=== PATIENT | female | born 1955 | race Hispanic/Latino ===

== ENCOUNTER → 2017-07-15 | Day surgery (SDC) | payer OTHER ==
[2017-07-14 15:05] LABS: BASOPHILS # (AUTO) 0.1 (0.0-0.1); BASOPHILS % 0.8 % (0.0-1.0); EOSINOPHILS # (AUTO) 0.4 (0.0-0.4); EOSINOPHILS % 4.7 % (0.0-6.0); HEMOGLOBIN 12.1 g/dL (12.0-16.0); LYMPHOCYTES # (AUTO) 2.5 (1.0-3.2); MEAN CORPUSCULAR HEMOGLOBIN 28.3 pg (28-32); MEAN CORPUSCULAR HGB CONC 32.7 g/dL (31-35); MEAN CORPUSCULAR VOLUME 86.7 fL (81-99); MONOCYTES # (AUTO) 0.5 (0.2-0.8); NEUTROPHILS # (AUTO) 5.2 (2.1-6.9); NEUTROPHILS % 59.2 % (38.7-80.0); PLATELET COUNT 305 x10e3/uL (140-360); RED BLOOD COUNT 4.27 x10e6/uL (3.6-5.1); RED CELL DISTRIBUTION WIDTH 14.2 % (11.7-14.4)
[2017-07-14 15:23] LABS: ANION GAP 10.5 mmol/L (8-16); BLOOD UREA NITROGEN 17 mg/dL (7-26); BUN/CREATININE RATIO 20 (6-25); CALCIUM 9.1 mg/dL (8.4-10.2); CARBON DIOXIDE 27 mmol/L (22-29); CHLORIDE 107 mmol/L (98-107); CREATININE, SERUM 0.85 mg/dL (0.57-1.11); EST GLOMERULAR FILTRATION RATE > 60 ML/MIN (60-); GLUCOSE 186 mg/dL (74-118); POTASSIUM 4.5 mmol/L (3.5-5.1); SODIUM 140 mmol/L (136-145)
--- NOTE | 2017-07-14 15:49 | Diagnostic Imaging Report ---
PROCEDURE: Frontal and lateral views of the chest. COMPARISON: 07/05/14 INDICATIONS: PRE OP ABSCESS DRAINAGE FINDINGS: Lines/tubes: None. Lungs: The lungs are well inflated and clear. There is no evidence of pneumonia or pulmonary edema. Pleura: There is no significant pleural effusion or pneumothorax. Heart and mediastinum: The cardiomediastinal silhouette is borderline in size. Aorta is tortuous. Bones: No acute bony abnormality. IMPRESSION: 1. No acute cardiopulmonary disease. Dictated by: Landen Flynn M.D. on 07/14/2017 at 15:50 Electronically approved by: Landen Flynn M.D. on 07/14/2017 at 15:50
[~2017-07-15] MED LIST: BACITRACIN 50,000 UNIT VIAL ONE; BUPIVACAINE 0.25%/EPI 30ML SDV INJ ONE; CLINDAMYCIN 600MG/D5W 50ML 50 ML IV ONE; DEXAMETHASONE SOD PHOS INJ 4 MG/ML VIAL ONE; FENTANYL CITRATE/PF 100MCG/2 ML INJ ONE; FOLIC ACID1 MG PO; HYDROGEN PEROXIDE 120 ML BTL ONE; LIDOCAINE HCL 2% LOCAL INJ 5 ML SDV VIAL INJ ONE; MIDAZOLAM HCL 2 MG/2 ML VIAL ONE; ONDANSETRON HCL INJ 2 MG/ML VIAL ONE; PROPOFOL IV EMULSION 10 MG/ML 20 ML VIAL ONE; SEVOFLURANE INHAL SOLN 250 ML PEN BTL ONE; VITAMIN D1000 UNI1 PO; Z.0.PROTONIX40 MG PO; Z.1.PHENTERMINE H37. PO
--- OUTSIDE RECORDS SUMMARY | 2017-07-15 07:02 | XMS REPORT ---
Author Author [facility] Address Unknown Phone Unavailable Care Team Providers Care Net Front End Developer Name Role Phone VÍCTOR BOO Unavailable Unavailable Problems This patient has no known problems. Allergies, Adverse Reactions, Alerts This patient has no known allergies or adverse reactions. Medications This patient has no known medications. Results Test Description Test Time Test Comments Text Results Atomic Results Result Comments CHEST [address] [address] Patient Name: BONITA CASTELLANO MR #: [id number] : 1955 Age/Sex: 61/F Req #: [id number] Adm Physician: Ordered by: VÍCTOR BOO MD Report #: [id number] Location: OR Room/Bed: Procedure: [id number] DX/CHEST 2 VIEWS Exam Date: 07/14/17 Exam Time : 1518 REPORT STATUS: Signed PROCEDURE: Frontal and lateral views of the chest. COMPARISON: 07/05/14 INDICATIONS: PRE OP ABSCESS DRAINAGE FINDINGS: Lines/tubes: None. Lungs: The lungs are well inflated and clear. There is no evidence of pneumonia or pulmonary edema. Pleura: There is no significant pleural effusion or pneumothorax. Heart and mediastinum: The cardiomediastinal silhouette is borderline in size. Aorta is tortuous. Bones: No acute bony abnormality. IMPRESSION: 1. No acute cardiopulmonary disease. Dictated by: Landen Flynn M.D. on 07/14/2017 at 15:50 Electronically approved by: Landen Flynn M.D. on 07/14/2017 at 15:50 Dictated By: LANDEN FLYNN MD 49 Transcribed By: PAMELA on 07/14/171549 COPY TO: VÍCTOR BOO MD
--- NOTE | 2017-07-15 10:28 | Operative Report ---
DATE OF PROCEDURE: July 15, 2017 PREOPERATIVE DIAGNOSIS: Right axillary abscess. POSTOPERATIVE DIAGNOSIS: Right axillary abscess secondary to infected epidermal inclusion cyst. PROCEDURES PERFORMED: 1. Incision and drainage of abscess of the right axilla. 2. Debridement of infected, ruptured right axillary cyst, epidermal inclusion cyst. INTRAOPERATIVE FINDINGS: Right axillary infected and ruptured epidermal inclusion cyst. DESCRIPTION OF THE PROCEDURE: With the patient lying on the operative table in the supine position, after administration of general endotracheal anesthesia, she was prepped and draped for incision and drainage of right axillary abscess. With the arm abducted, the axilla exposed, an incision was made directly over the palpable fluctuant area, immediately came into view fragments of occlusion cyst with its typical cheesy contents, all of that was debrided down to viable and clean tissue without any evidence of cyst remnants or lining. The wound was copiously irrigated and then a 1/4-inch Neftali drain was placed to drain the cavity and brought out inferior and lateral through the incision. This drain was secured there with 3-0 silk and we closed the cavity with interrupted 3-0 silk sutures and then we packed the cavity with Betadine gauze. Sterile dressing was applied. The patient tolerated the procedure well, was taken to recovery room in stable condition. Job#: [id number]
== END | disposition home or self-care (01) ==
LOC: OR 07:00
PROVIDERS: ATTEND Surgery
DX: L02.411 Cutaneous abscess of right axilla (principal); L72.0 Epidermal cyst; K21.9 Gastro-esophageal reflux disease without esophagitis; R20.9 Unspecified disturbances of skin sensation; K44.9 Diaphragmatic hernia without obstruction or gangrene; G47.33 Obstructive sleep apnea (adult) (pediatric); R00.1 Bradycardia, unspecified; F17.210 Nicotine dependence, cigarettes, uncomplicated; Z01.810 Encounter for preprocedural cardiovascular examination; Z01.812 Encounter for preprocedural laboratory examination; Z01.818 Encounter for other preprocedural examination; Z68.41 Body mass index [BMI] 40.0-44.9, adult
CPT/HCPCS: 10060; 36415; 71046; 80048; 85025; 87071; 87075; 87205; 88304; 93005; J1100; J2001; J2250; J2405; 88305

== ENCOUNTER 2017-09-02 20:58 | Emergency (ER) | payer OTHER ==
[~2017-09-02] VITALS: Ht 154.9 cm; Wt 98.0 kg
[~2017-09-02 20:58] MED LIST changes: -BACITRACIN 50,000 UNIT VIAL ONE; -BUPIVACAINE 0.25%/EPI 30ML SDV INJ ONE; -CLINDAMYCIN 600MG/D5W 50ML 50 ML IV ONE; -DEXAMETHASONE SOD PHOS INJ 4 MG/ML VIAL ONE; -FENTANYL CITRATE/PF 100MCG/2 ML INJ ONE; -HYDROGEN PEROXIDE 120 ML BTL ONE; -LIDOCAINE HCL 2% LOCAL INJ 5 ML SDV VIAL INJ ONE; -MIDAZOLAM HCL 2 MG/2 ML VIAL ONE; -ONDANSETRON HCL INJ 2 MG/ML VIAL ONE; -PROPOFOL IV EMULSION 10 MG/ML 20 ML VIAL ONE; -SEVOFLURANE INHAL SOLN 250 ML PEN BTL ONE
[2017-09-02 22:00] LABS: BACTERIA,URINE MANY /HPF; BILIRUBIN,URINE NEGATIVE (NEGATIVE); CLARITY,URINE CLOUDY (CLEAR); COLOR,URINE YELLOW (YELLOW); KETONES,URINE NEGATIVE (NEGATIVE); LEUKOCYTE ESTERASE ,URINE 2+ (NEGATIVE); NITRITE,URINE POSITIVE (NEGATIVE); PROTEIN,URINE DIPSTICK 3+ (NEGATIVE); RBC,URINE >50 /HPF (0-5); URINE UROBILINOGEN 0.2 mg/dL (0.2 - 1)
[2017-09-02 22:01] LABS: EPITHELIAL CELLS,URINE FEW /LPF; MUCUS,URINE FEW (RARE)
--- NOTE | 2017-09-02 23:09 | Diagnostic Imaging Report ---
EXAM: CT ABDOMEN/PELVIS WO DATE: 09/02/2017 10:02 PM INDICATION: Renal stone, flank pain COMPARISON: None TECHNIQUE: The abdomen and pelvis were scanned using a multidetector helical scanner. Coronal and sagittal reformations were obtained. Routine protocol performed. IV Contrast: None ml Isovue 300/370 FINDINGS: Lack of IV contrast decreases sensitivity in evaluating abdominal and pelvic organs. LOWER THORAX: Calcified left lower lobe granuloma. LIVER/BILIARY: Hepatic steatosis. GALLBLADDER: Unremarkable SPLEEN: Unremarkable PANCREAS: Unremarkable ADRENALS: 1.2 cm lipid rich left adrenal adenoma (HU -14). KIDNEYS: No hydronephrosis or stones. GI TRACT: No wall thickening or evidence of obstruction. Diverticulosis. Appendix is not visualized. VESSELS: Mild atherosclerotic PERITONEUM/RETROPERITONEUM: No free air or fluid LYMPH NODES: No lymphadenopathy REPRODUCTIVE ORGANS/BLADDER: Bladder is partially decompressed but appears thick-walled with perivesicular stranding. Hysterectomy. SOFT TISSUES: Small fat-containing umbilical hernia. BONES: No suspicious bone lesions. IMPRESSION: Findings which can be seen with cystitis. Correlate with urinalysis. No obstructive uropathy. Signed by: Dr Asmita Maradiaga MD on 09/02/2017 11:05 PM
== END 2017-09-02 23:55 | disposition home or self-care (01) ==
LOC: ER 20:58
DX: R30.0 Dysuria (principal); N30.91 Cystitis, unspecified with hematuria; K21.9 Gastro-esophageal reflux disease without esophagitis
CPT/HCPCS: 74176; 81001; 87086; 87186; 99283

== ENCOUNTER → 2018-07-06 | Outpatient (CLI) | payer OTHER ==
--- NOTE | 2018-07-06 15:05 | Diagnostic Imaging Report ---
EXAMINATION: PA and lateral views of the chest. COMPARISON: None CLINICAL HISTORY: Preoperative exam for thumb surgery DISCUSSION: Lines/tubes: None. Lungs: The lungs are well inflated and clear. There is no evidence of pneumonia or pulmonary edema. Pleura: There is no pleural effusion or pneumothorax. Heart and mediastinum: Tortuous thoracic aorta. Otherwise unremarkable cardiomediastinal contour. Bones and soft tissues: No acute bony abnormalities. Degenerative changes in the thoracic spine IMPRESSION: No acute cardiopulmonary abnormalities. Signed by: Dr. Tobin Brennan M.D. on 07/06/2018 3:02 PM
== END ==
LOC: RAD 13:34
PROVIDERS: ATTEND Internal Medicine
DX: Z01.818 Encounter for other preprocedural examination (principal)
CPT/HCPCS: 71046

== ENCOUNTER 2019-09-16 10:41 | Emergency (ER) | payer OTHER ==
[~2019-09-16] VITALS: Ht 154.9 cm; Wt 98.0 kg
--- OUTSIDE RECORDS SUMMARY | 2019-09-16 10:45 | XMS REPORT | Continuity of Care Document ---
Author Author Chris SkyBulls, BONITA Gaines Organization [employer] Address Unknown Phone Unavailable Care Team Providers Care Case Management Associate Name Role Phone [employer] Unavailable Un available Problems Problem Status Onset Date Classification Date Reported Comments Source Unspecified inflammatory polyarthropathy Active Problem 08/25/2013 Mario Ernst Osteoarthrosis generalized, unspecified site Active Problem 08/25/2013 Mario Ernst Medications Medication Details Route Status Patient Instructions Ordering Provider Order Date Source Mobic 1 tablets Orally Active 7.5 MG Orally twice a d ay as need Toño Jaquez 08/16/2013 Mario Ernst Omeprazole 1 capsule Orally Active 40 MG Orally Once a day Toño Jaquez Mario Ernst Allergies, Adverse Reactions, Alerts Substance Category Reaction Severity Reaction type Status Date Reported Comments Source Iodine Adverse Reaction rash Adverse Reaction Active 08/12/2013 Mario Ernst Immunizations No Data Provided for This Section Results No Data Provided for This Section Pathology Reports No Data Provided for This Section Diagnostic Reports No Data Provided for This Section Consultation Notes No Data Provided for This Section Discharge Summaries No Data Provided for This Section History and Physicals No Data Provided for This Section Vital Signs Vital Sign Value Date Comments Source Weight 206 08/12/2013 Mario Ernst Height 62 0 08/12/2013 Mario Ernst Temperature Oral (F) 98.3 F 08/12/2013 Mario Ersnt Heart Rate 76 08/12/2013 Mario Ernst Diastolic (mm Hg) 82 08/12/2013 Mario Ernst Systolic (mm Hg) 124 08/12/2013 Mario Ernst Encounters Location Location Details Encounter Type Encounter Number Reason For Visit Attending Provider ADM Date DC Date Status Source Maldonado Ernst MD 4w f/u [id number] 08/13/19 14 08/12/2013 Mario Ernst MD [facility] rx [id number] 08/17/19 14 08/16/2013 Mario Ernst MD [facility] rx [id number] 08/17/19 14 08/16/2013 Mario Ernst Procedures No Data Provided for This Section Assessment and Plan No Data Provided for This Section Plan of Care No Data Provided for This Section Social History Social History Date Source Social History ElementQualifiersDate Rep orted Tobacco Use: . Are you a:: current smoker , How oft en do you smoke cigarettes?: every day August 12, 2013 Caffeine: yes. frequency:, 1-3, cups/day August 12, 2013 Exercise: no. August 12, 2013 Alcohol: socially. August 12, 2013 08/12/2013 Mario Ernst Family History No Data Provided for This Section Advance Directives No Data Provided for This Section Functional Status No Data Provided for This Section
--- OUTSIDE RECORDS SUMMARY | 2019-09-16 10:45 | XMS REPORT ---
Author Author BONITA Rocha Organization [employer] Address Unknown Phone Unavailable Care Team Providers Care Block Bolter Mule Operator Name Role Phone Brandi Rocha CP Unavailable Encounters Encounter Location Date mobic rx Maldonado Ernst MD August 16, 2013 Problems Problem Type Condition ICD-9 Code Onset Dates Condition Statu s Problem Unspecified inflammatory polyarthropathy 714.9 Active Problem Osteoarthrosis generalized, unspecified site 715.00 Active Medications Medication Code System Code Instructions Start Date End Date Status Dosage Moblaith MEDISPAN [address]-34 7.5 MG Orally twice a day as need Ma 2013 Active 1 tablets Social History Social History Element Qualifiers Date Reported Tobacco Use: . Are you a:: current smok er , How often do you smoke cigarettes?: every day August 12, 2013 Caffeine: yes. frequency:, 1-3, cups/day August 12, 2013 Exercise: no. August 12, 2013 Alcohol: socially. August 12, 2013 Summary Purpose [employer] Submission
--- OUTSIDE RECORDS SUMMARY | 2019-09-16 10:46 | XMS REPORT | Summary of Care ---
Author Author BONITA POOL M.D. Organization Unknown Address Unknown Phone Unavailable Care Team Providers Care Community Relations Coordinator Name Role Phone ADALBERTO POOL M.D. Unavailable Unavailable SIL GAMBINO M.D. Unavailable Unavailable KODY GONZALES [place], MARVIN Sorensen Unavailable Unavailable SIL GAMBINO MD Unavailable Unavailable Unavailable Unavailable Functional Status Name Dates Details Functional status health issues are not documented Status: Name Dates Details Cognitive status health issues are not d ocumented Status: Problems Name Dates Details Pain of left hand (729.5, M79.642) Status: Active Rupture of ulnar collateral ligament of left thumb, initial encounter (842.12, S63.642A) Status: Active Encounter for screening mammogram for br east cancer (V76.12, Z12.31) Status: Active Urge incontinence of urine (788.31, N39. 41) Status: Active Depression (311, F32.9) Status: Active Medications Name Dates Details Ondansetron HCl - 8 MG Oral Tablet TAKE 1 TABLET Every twelve hours Quantity: 15 SIL GAMBINO M.D. * Start : 16-Jul-2018 Active Colace 100 MG Oral Capsule TAKE 1 CAPSULE 3 TIMES DAILY. * Quantity: 45 Refills: 0 SIL GAMBINO M.D. * Start : 16-Jul-2018 Active metFORMIN HCl - 500 MG Oral Tablet * Refills: 0 Active Omeprazole 40 MG Oral Capsule Delayed Release * Refills: 0 Active Oxybutynin Chloride ER 5 MG Oral Tablet Extended Release 24 Hour TAKE 1 TABLET DAILY * Quantity: 30 Refills: 2 ADALBERTO POOL M.D. * Start : 20-Apr-2019 Active Allergies and Adverse Reactions Name Dates Details Keflex (Allergy) Status: Active Iodine (Allergy) Status: Active Past Medical History Name Dates Details History of Fibroids (V13.89, Z86.018) Status: Resolved History of ovarian cyst (V13.29, Z87.42) Status: Resolved Procedures Procedure Dates Details Nirmala - DIGITAL MAMMOGRAM Date: 20-Apr-2019 Immunization Name Dates Details Immunizations not documented Family History Name Dates Details Family history of Diabetes (250.00, E11. 9) Status: Active Social History Name Dates Details - Status: Name Dates Details Never smoker Vital Signs Date Test Result Details [id number] BP Systolic 144 mm[Hg] Status: Comments: Lo cation: RUE; Position: Sitting BP Diastolic 77 mm[Hg] Status: Comments: Lo cation: RUE; Position: Sitting Height 61.5 in Status: Weight 224.5 lb Status: Body Mass Index Calculated 41.73 kg/m2 Status: Body Surface Area Calculated 2 m2 Status: Temperature 98.4 f Status: Comments: Me thod: Oral Heart Rate 48 /min Status: Comments: Lo cation: R Radial; Quality: Normal Results Date Description Value Details Results not documented Plan of Care Name Dates Details Planned Observations Planned Goals not documented Planned Encounters Appointment; MARVIN GATES M.D. On: 11-May-2019 13:00 Interventions Provided Medication Changes* Oxybutynin Chloride ER 5 MG Oral Tablet Extended Release 24 Hour - Start Labs/Procedures/Imaging* Nirmala - DIGITAL MAMMOGRAM; To Be Done: 20 Apr 2019 Discussion/Summary* WWE * Urge UI * -ditropan 5 XL given to patient * Depression * -denies SI/HI * -declined referral to psych. Going to discuss with her PCP * RTC in 2 months. Instructions Name Dates Details Instructions not documented Encounters Appointment; SIL GAMBINO M.D. Encounter Diagnosis: Problem not documented On: 25-Jun-2018 8:00 Appointment; SIL GAMBINO M.D. Encounter Diagnosis: Problem not documented On: 02-Jul-2018 13:30 Appointment; SIL GAMBINO M.D. Encounter Diagnosis: Problem not documented On: 19-Jul-2018 11:00 Appointment; SIL GAMBINO M.D. Encounter Diagnosis: Problem not documented On: 27-Jul-2018 7:45 Appointment; SIL GAMBINO M.D. Encounter Diagnosis: Problem not documented On: 10-Aug-2018 7:45 Appointment; ADALBERTO POOL M.D. Encounter Diagnosis: Problem not documented On: 20-Apr-2019 13:00
--- OUTSIDE RECORDS SUMMARY | 2019-09-16 10:46 | XMS REPORT | Continuity of Care Document ---
Author Author [facility] t Organization [facility] Address [address] [place] [address] Phone Unavailable Care Team Providers Care Boat Assembler Name Role Phone KATHIA JIMENEZ MD PCP ADALBERTO POOL M.D. Attphys Unavailable SIL GAMBINO M.D. Attphys Unavailable KATHIA JIMENEZ Attphys Unavailable Beny XIE Attphys Unavailable VÍCTOR BOO Attphys Unavailable Payers Payer Name Policy Type Policy Number Effective Date Expiration Date Lina Billingsley o [id number] 2017 00:00:[address] [facility] Problems Condition Name Condition Details Condition Category Status Onset Date Resolution Date Last Treatment Date Treating Clinician Comments Source Pain of left hand Pain of left hand Problem Active [facility] Rupture of ulnar collateral ligament of left thumb, in itial encounter Rupture of ulnar collateral ligament of left thumb, initial encounter Problem Active [facility] History of Fibroids History of Fibroids Problem Resolved [facility] History of ovarian cyst History of ovarian cyst Problem Resolved [facility] Encounter for screening mammogram for breast cancer En counter for screening mammogram for breast cancer Problem Active [facility] Urge incontinence of urine Urge incontinence of urine Problem Active [facility] Depression Depression Problem Active [facility] Unspecified inflammatory polyarthropathy Unspecified inflammatory polyarthropathy Active Problem 08/25/2013 Mario Ernst Problem Active 2013-08-25 02:49:21 Rony Lockhart Osteoarthrosis generalized, unspecified site Osteoarthrosis generalized, unspecified site Active Problem 08/25/2013 Mario Ernst Problem Active 2013-08-25 02:49:21 Chris Lockhart Allergies, Adverse Reactions, Alerts Allergy Name Allergy Type Status Severity Reaction(s) Onset Date Inacti ve Date Treating Clinician Comments Source Cephalexin Monohydrate Allergy to Substance Active 2017 00:00:00 [facility] Iodine Allergy to Substance Active Mild RASH 2017-09-02 00:00:00 [facility] Iodine Iodine Active rash 2013-08-12 00:00:00 [facility] Keflex drug allergy Active [facility] Iodine allergy to substance Active [facility] Family History Family Member Diagnosis Comments Start Date Stop Date Source Sister Family history of Diabetes [facility] Social History Social Habit Start Date Stop Date Quantity Comments Source TobaccoUse: 2013-08-12 00:00:00 2013-08-12 00:00:00 [facility] Smoking Status Start Date Stop Date Source Never smoker [facility] Medications Ordered Medication Name Filled Medication Name Start Date Stop Da te Current Medication? Ordering Clinician Indication Dosage Frequency Signature (SIG) Comments Components Source Oxybutynin Chloride ER 5 MG Oral Tablet Extended Relea se 24 Hour Oxybutynin Chloride ER 5 MG Oral Tablet Extended Release 24 Hour 2019-04-20 00:00:00 Yes ADALBERTO POOL M.D. QD TAKE 1 TABLET DAILY [facility] Ondansetron HCl - 8 MG Oral Tablet Ondansetron HCl - 8 MG Or al Tablet 2018-07-16 00:00:00 Yes SIL GAMBINO M.D. 1 Q12H TAKE 1 TABL ET Every twelve hours [facility] Colace 100 MG Oral Capsule Colace 100 MG Oral Capsule 2018-07-16 00:0 0:00 Yes SIL GAMBINO M.D. Q0.3333D TAKE 1 CAPSULE 3 TIMES DAILY. [facility] Omeprazole 2013-08-25 02:49:21 Yes Brandi Rocha 1 capsule [facility] Mobic 2013-08-16 00:00:00 Yes Brandi Rocha 1 tablets [facility] metFORMIN HCl - 500 MG Oral Tablet metFORMIN HCl - 500 MG Oral Tablet Yes [facility] Omeprazole 40 MG Oral Capsule Delayed Release Omeprazo le 40 MG Oral Capsule Delayed Release Yes [facility] Folic Acid 1 Mg Tablet Folic Acid 1 Mg Tablet Yes 1 Daily [facility] Pantoprazole Sodium (Protonix) 40 Mg Tablet. Pantopr azole Sodium (Protonix) 40 Mg Tablet. Yes 40 As Needed [facility] Cholecalciferol (Vitamin D3) (Vitamin D) 1,000 Unit Ta blet, 1000 Unit Oral Cholecalciferol (Vitamin D3) (Vitamin D) 1,000 Unit Tablet, 1000 Unit Oral 2017-07-14 00:00:00 No [address] [facility] Phentermine Hcl 37.5 Mg Capsule, 0.5 Tab Oral Phenterm ine Hcl 37.5 Mg Capsule, 0.5 Tab Oral 2015-01-10 00:00:00 No .[address] [facility] Vital Signs Vital Name Observation Time Observation Value Comments Source BP Systolic 2019-04-20 13:29:00 144 mm[Hg] Location: RUE; Positi on: Sitting [facility] BP Diastolic 2019-04-20 13:29:00 77 mm[Hg] Location: RUE; Positi on: Sitting [facility] Height 2019-04-20 13:29:00 61.5 [in_us] [facility] Weight 2019-04-20 13:29:00 224.5 [lb_av] [facility] Body Mass Index Calculated 2019-04-20 13:29:00 41.73 kg/m2 [facility] Temperature 2019-04-20 13:29:00 98.4 [degF] Method: Oral [facility] Heart Rate 2019-04-20 13:29:00 48 /min Location: R Radial; Q uality: Normal [facility] Weight 2013-08-12 20:00:00 [facility] Height 2013-08-12 20:00:00 [facility] Temperature Oral (F) 2013-08-12 20:00:00 98.3 F [facility] Heart Rate 2013-08-12 20:00:00 [facility] [place] Diastolic (mm Hg) 2013-08-12 20:00:00 [facility] Systolic (mm Hg) 2013-08-12 20:00:00 [facility] [place] Procedures Procedure Date / Time Performed Performing Clinician Kalpana Silvestre - DIGITAL MAMMOGRAM 2019-04-20 00:00:00 [facility] Post Op Promis 29 Survey 2018-07-28 00:00:00 [facility] [U] XRAY FINGER(S) - 2 VWS MIN. LEFT [id number] 2018-07-27 00:00:00 [facility] MR Hand wo contrast [id number] 2018-06-25 00:00:00 [facility] CT of abdomen and pelvis without contrast 2017-09-02 00:00:00 CARLOS PACHECO [facility] DRAINAGE OF SKIN ABSCESS 2017-07-15 00:00:00 ANDRESSA BOO [facility] X-ray of chest, two views 2017-07-14 00:00:00 CAIT BOO [facility] EGD BIOPSY SINGLE/MULTIPLE 2016-12-13 00:00:00 MARYBETH ROOT [facility] DILATE ESOPHAGUS 1/MULT PASS 2016-12-13 00:00:00 MARYBETH ROOT [facility] Encounters Start Date/Time End Date/Time Encounter Type Admission Type [facility] Care Department Encounter ID Source 2019-04-20 13:00:00 2019-04-20 13:00:00 Appointment; ADALBERTO POOL M.D. CROSS, TAMIKA, M.D. [facility] [id number] [facility] 2018-08-10 07:45:00 2018-08-10 07:45:00 Appointment; BLAIR GAMBINO M.D. MANSOUR, ASHTON, M.D. [facility] [id number] [facility] 2018-07-27 07:45:00 2018-07-27 07:45:00 Appointment; BLAIR GAMBINO M.D. MANSOUR, ASHTON, M.D. [facility] Orthopedics at [facility] [id number] [facility] 2018-07-19 11:00:00 2018-07-19 11:00:00 Appointment; BLAIR GAMBINO M.D. MANSOUR, ASHTON, M.D. [facility] Orthopedics at [facility] [id number] [facility] 2018-07-02 13:30:00 2018-07-02 13:30:00 Appointment; BLAIR GAMBINO M.D. MANSOUR, ASHTON, M.D. [facility] Orthopedics [id number] [facility] 2018-06-25 08:00:00 2018-06-25 08:00:00 Appointment; BLAIR GAMBINO M.D. MANSOUR, ASHTON, M.D. [facility] UTP [id number] [facility] 2017-09-02 20:58:00 2017-09-02 23:55:00 Departed Emergency Room 1 RODO XIE [facility] [id number] [facility] 2017-07-15 07:00:00 2017-07-15 07:00:00 Registered Surgical Day Car e VÍCTOR TAYLOR [facility] [id number] [facility] 2016-12-13 06:58:00 2016-12-13 06:58:00 Registered Surgical Day Care [facility] [id number] [facility] 2013-08-16 11:01:00 2013-08-16 11:01:00 Outpatient MD Maldonado Castro MD [id number] Mario Ernst MD 2013-08-12 15:00:00 2013-08-12 15:00:00 Outpatient MD Maldonado Castro MD [id number] Mario Ernst MD Results Test Description Test Time Test Comments Results Result Comments Source [U] XRAY FINGER(S) - 2 VWS MIN. LEFT [id number] 2018-07-27 08:02:00 Images acquired, not reported on this accession number. [facility] CHEST 2 VIEWS 2018-07-06 15:00:00 [place] [address] Patient Name: BONITA CASTELLANO MR #: [id number] : 1955 Age/Sex: 62/F Req #: [id number] Adm Physician: Ordered by: KATHIA JIMENEZ MD Report #: [id number] Location: [facility] Room/Bed: Procedure: [id number] DX/CHEST 2 VIEWS Exam Date: 07/06/18 Exam Time: 1403 REPORT STATUS: Signed EXAMINATION: PA and lateral views of the chest. COMPARISON: None CLINICAL HISTORY: Preoperative exam for thumb surgery DISCUSSION: Lines/tubes: None. Lungs: The lungs are well inflated and clear. There is no evidence of pneumonia or pulmonary edema. Pleura: There is no pleural effusion or pneumothorax. Heart and mediastinum: Tortuous thoracic aorta. Otherwise unremarkable cardiomediastinal contour. Bones and soft tissues: No acute bony abnormalities. Degenerative changes in the thoracic spine IMPRESSION: No acute cardiopulmonary abnormalities. Signed by: Dr. Lucio Brennan M.D. on 07/06/2018 3:02 PM Dictated By: LUCIO BRENNAN MD 1502 Transcribed By: ANI on 07/06/18 1502 COPY TO: KATHIA JIMENEZ MD [U] XRAY HAND MIN 3 VWS LEFT [id number] 2018-06-25 08:35:00 Images acquired, not reported on this accession number. [facility] [U] XRAY FINGER(S) - 2 VWS MIN. LEFT [id number] 2018-06-25 08:35:00 Images acquired, not reported on this accession number. [facility] Urine Color 2017-09-02 22:01:00 Test Item Urine Color (test code = 5778-6) YELLOW YELLOW [facility] [id number] 22:01:00* Test Item Value Reference Range Interpretation Comments Urine Clarity (test code = 90732-5) CLOUDY CLEAR H [facility] Specific [id number] 22:01:00 * Test Item Value Reference Range Interpretation Comments Urine Specific Cherry Plain (test code = 5811-5) 1.030 1.010-1.02 5 H [facility] [id number] 22:01:00* Test Item Value Reference Range Interpretation Comments Urine pH (test code = 98066-8) 6 5-7 [facility] Leukocyte [id number] 22:01:00* Test Item Value Reference Range Interpretation Comments Urine Leukocyte Esterase (test code = 5799-2) 2+ NEGATIVE H [facility] [id number] 22:01:00* Test Item Value Reference Range Interpretation Comments Urine Nitrite (test code = 20771-1) POSITIVE NEGATIVE H [facility] [id number] 22:01:00* Test Item Value Reference Range Interpretation Comments Urine Protein (test code = 5804-0) 3+ NEGATIVE H [facility] Glucose (UA)2017-09-02 22:01:00* Test Item Value Reference Range Interpretation Comments Urine Glucose (UA) (test code = 2349-9) NEGATIVE NEGATIVE [facility] [id number] 22:01:00* Test Item Value Reference Range Interpretation Comments Urine Ketones (test code = 22608-2) NEGATIVE NEGATIVE [facility] Bivbqaarobqr5273-46-18 22:01:00* Test Item Value Reference Range Interpretation Comments Urine Urobilinogen (test code = 81803-3) 0.2 0.2-1 [facility] Qyxosprew7940-79-04 22:01:00* Test Item Value Reference Range Interpretation Comments Urine Bilirubin (test code = 1978-6) NEGATIVE NEGATIVE [facility] [id number] 22:01:00* Test Item Value Reference Range Interpretation Comments Urine Blood (test code = 54555-0) 4+ NEGATIVE H [facility] [id number] 22:01:00* Test Item Value Reference Range Interpretation Comments Urine WBC (test code = 5821-4) 11-20 0-5 H [facility] [id number] 22:01:00* Test Item Value Reference Range Interpretation Comments Urine RBC (test code = 21500-4) 50- 0-5 H [facility] [id number] 22:01:00* Test Item Value Reference Range Interpretation Comments Urine Bacteria (test code = 57015-3) MANY NONE H [facility] Epithelial [id number] 22:01:00 * Test Item Value Reference Range Interpretation Comments Urine Epithelial Cells (test code = 92971-1) FEW NONE [facility] Uzixv7231-13-22 22:01:00* Test Item Value Reference Range Interpretation Comments Urine Mucus (test code = 8247-9) FEW RARE H [facility]landodium [id number] 15:24:00* Test Item Value Reference Range Interpretation Comments Sodium Level (test code = 2951-2) 140 136-145 [facility] Vvdmw9956-45-51 15:24:00* Test Item Value Reference Range Interpretation Comments Potassium Level (test code = 2823-3) 4.5 3.5-5.1 [facility]loride [id number] 15:24:00* Test Item Value Reference Range Interpretation Comments Chloride Level (test code = 2075-0) 107 98-107 [facility] Southeast[facility] Dioxide [id number] 15:24:00* Test Item Value Reference Range Interpretation Comments Carbon Dioxide Level (test code = 2028-9) 27 22-29 [facility] SoutheastAnion Wwy0615-22-00 15:24:00* Test Item Value Reference Range Interpretation Comments Anion Gap (test code = 36981-0) 10.5 8-16 [facility] Urea Yffawjid5021-73-95 15:24:00* Test Item Value Reference Range Interpretation Comments Blood Urea Nitrogen (test code = 3094-0) 17 7-26 [facility]inine2018-04-10 15:24:00* Test Item Value Reference Range Interpretation Comments Creatinine (test code = 2160-0) 0.85 0.57-1.11 [facility]UN/Creatinine [id number] 15:24:00* Test Item Value Reference Range Interpretation Comments BUN/Creatinine Ratio (test code = 3097-3) 20 6-25 [facility] Southeast[facility]at Glomerular Filtration Rate 2017-07-14 15:24:00* Test Item Value Reference Range Interpretation Comments Estimat Glomerular Filtration Rate (test code = 21557-1) 60- >60 Ranges were taken from the National Kidney Disease Education Program and the [facility] Kid[facility] Foundation literature.Reference ranges:60 or greater: Slgzpo04-98 ( for 3 consecutive months): Chronic kidney disease 15 or less: Kidney failureHCA [facility] Healthcare SoutheastGlucose Rjgkp2975-59-65 15:24:00* Test Item Value Reference Range Interpretation Comments Glucose Level (test code = EOP5181) 186 74-118 H [facility] SoutheastCalcium Dfkbq3549-11-29 15:24:00* Test Item Value Reference Range Interpretation Comments Calcium Level (test code = 52627-9) 9.1 8.4-10.2 [facility] SoutheastWhite Blood Jcdnc7898-81-77 15:06:00* Test Item Value Reference Range Interpretation Comments White Blood Count (test code = 6690-2) 8.72 4.8-10.8 [facility] Blood [id number] 15:06:00* Test Item Value Reference Range Interpretation Comments Red Blood Count (test code = 789-8) 4.27 3.6-5.1 [facility]emoglobin2018-04-10 15:06:00* Test Item Value Reference Range Interpretation Comments Hemoglobin (test code = 74127-1) 12.1 12.0-16.0 [facility] SoutheastHematocrit2018-04-10 15:06:00* Test Item Value Reference Range Interpretation Comments Hematocrit (test code = 4544-3) 37.0 34.2-44.1 [facility] SoutheastMean Corpuscular Fqbctn3501-26-76 15:06:00* Test Item Value Reference Range Interpretation Comments Mean Corpuscular Volume (test code = 787-2) 86.7 81-99 [facility] SoutheastMean Corpuscular Ozqysklxxq9777-03-48 15:06:00* Test Item Value Reference Range Interpretation Comments Mean Corpuscular Hemoglobin (test code = 785-6) 28.3 28-32 [facility] SoutheastMean Corpuscular Hemoglobin Concent 2017-07-14 15:06:00* Test Item Value Reference Range Interpretation Comments Mean Corpuscular Hemoglobin Concent (test code = 786-4) 32.7 31-35 [facility] SoutheastRed Cell Distribution Qkezi1572-85-39 15:06:00* Test Item Value Reference Range Interpretation Comments Red Cell Distribution Width (test code = 42547-2) 14.2 11.7 -14.4 [facility] SoutheastPlatelet Iziak1633-29-23 15:06:00* Test Item Value Reference Range Interpretation Comments Platelet Count (test code = 777-3) 305 140-360 [facility] SoutheastNeutrophils (%) (Auto)2017-07-14 15:06:00 * Test Item Value Reference Range Interpretation Comments Neutrophils (%) (Auto) (test code = 13849-9) 59.2 38.7-80.0 [facility] SoutheastLymphocytes (%) (Auto)2017-07-14 15:06:00 * Test Item Value Reference Range Interpretation Comments Lymphocytes (%) (Auto) (test code = 736-9) 29.0 18.0-39.1 [facility] Southeast[facility]ocytes (%) (Auto)2017-07-14 15:06:00* Test Item Value Reference Range Interpretation Comments Monocytes (%) (Auto) (test code = 5905-5) 6.0 4.4-11.3 [facility]osinophils (%) (Auto)2017-07-14 15:06:00 * Test Item Value Reference Range Interpretation Comments Eosinophils (%) (Auto) (test code = 713-8) 4.7 0.0-6.0 [facility]ophils (%) (Auto)2017-07-14 15:06:00* Test Item Value Reference Range Interpretation Comments Basophils (%) (Auto) (test code = 706-2) 0.8 0.0-1.0 [facility] SoutheastIM GRANULOCYTES %2017-07-14 15:06:00* Test Item Value Reference Range Interpretation Comments IM GRANULOCYTES % (test code = IM GRANULOCYTES %) 0.3 0.0- 1.0 [facility] SoutheastNeutrophils # (Auto)2017-07-14 15:06:00* Test Item Value Reference Range Interpretation Comments Neutrophils # (Auto) (test code = 751-8) 5.2 2.1-6.9 [facility] SoutheastLymphocytes # (Auto)2017-07-14 15:06:00* Test Item Value Reference Range Interpretation Comments Lymphocytes # (Auto) (test code = 55918-0) 2.5 1.0-3.2 [facility] SoutheastMonocytes # (Auto)2017-07-14 15:06:00* Test Item Value Reference Range Interpretation Comments Monocytes # (Auto) (test code = 742-7) 0.5 0.2-0.8 [facility]osinophils # (Auto)2017-07-14 15:06:00* Test Item Value Reference Range Interpretation Comments Eosinophils # (Auto) (test code = 711-2) 0.4 0.0-0.4 [facility]ophils # (Auto)2017-07-14 15:06:00* Test Item Value Reference Range Interpretation Comments Basophils # (Auto) (test code = 704-7) 0.1 0.0-0.1 [facility] SoutheastAbsolute Immature Granulocyte (auto 2017-07-14 15:06:00* Test Item Value Reference Range Interpretation Comments Absolute Immature Granulocyte (auto (muriel t code = Absolute Immature Granulocyte (auto) 0.03 0-0.1 [facility]IS [place] [address] Patient Name: BONITA CASTELLANO MR #: [id number] : 1955 Age/Sex: 61/F Req #: [id number] Adm Physician: Ordered by: CARLOS WILLIAM NEWS PHOTOGRAPHER Report #: [id number] Location: ER Room/Bed: Procedure: [id number] CT/CT ABDOMEN/PELVIS WO Exam Date: 09/02/17 Exam Time: 2224 REPORT STATUS: S igned EXAM: CT ABDOMEN/PELVIS WO DATE: 09/02/2017 10:02 PM INDICATION: Renal stone, flank pain COMPARISON: None TECHNIQUE: The abdomen and pelvis were scanned using a multidetector helical scanner. Coronal and sagittal refo rmations were obtained. Routine protocol performed. IV Contrast: None ml Iso barak 300/370 FINDINGS: Lack of IV contrast decreases sensitivity in evalua ting abdominal and pelvic organs. LOWER THORAX: Calcified left lower lobe gr anuloma. LIVER/BILIARY: Hepatic steatosis. GALLBLADDER: Unremarkable SPLEEN: Unremarkable PANCREAS: Unremarkable ADRENALS: 1.2 cm lipid rich left adrenal adenoma (HU -14). KIDNEYS: No hydronephrosis or stones. GI T RACT: No wall thickening or evidence of obstruction. Diverticulosis. Appendix is not visualized. VESSELS: Mild atherosclerotic PERITONEUM/RETROPERITONE UM: No free air or fluid LYMPH NODES: No lymphadenopathy REPRODUCTIVE ORG ANS/BLADDER: Bladder is partially decompressed but appears thick-walled with p erivesicular stranding. Hysterectomy. SOFT TISSUES: Small fat-containing um bilical hernia. BONES: No suspicious bone lesions. IMPRESSION: Findings which can be seen with cystitis. Correlate with urinalysis. No obstructive ur opathy. Signed by: Dr Jarrod Smith MD on 09/02/2017 11:05 PM Dictat ed By: JARROD SMITH MD 04 COPY TO: ANEUDY WILLIAM NEWS PHOTOGRAPHER CHEST 2 VIEWS [place] [address] Patient Name: BONITA CASTELLANO MR #: [id number] : 1955 Age/Sex: 61/F Req #: [id number] Adm Physician: Ordered by: VÍCTOR BOO MD Report #: [id number] Location: OR Room/Bed: Procedure: [id number] DX/CHEST 2 VIEWS Exam Date: 07/14/17 Exam Time: 1518 REPORT STATUS: Signed PROCEDURE: Frontal and lateral views of the chest. COMPARISON: 5 INDICATIONS: PRE OP ABSCESS DRAINAGE FINDINGS: Lines/tubes : None. Lungs: The lungs are well inflated and clear. There is no eviden ce of pneumonia or pulmonary edema. Pleura: There is no significant pl eural effusion or pneumothorax. Heart and mediastinum: The cardiomediasti nal silhouette is borderline in size. Aorta is tortuous. Bones: No acu te bony abnormality. IMPRESSION: 1. No acute cardiopulmonary disea se. Dictated by: Landen Cazares M.D. on 07/14/2017 at 15:50 Electro nically approved by: Landen Cazares M.D. on 07/14/2017 at 15:50 Dictated By: LANDEN CAZARES MD [id number] COPY TO: VÍCTOR BOO MD
--- OUTSIDE RECORDS SUMMARY | 2019-09-16 10:46 | XMS REPORT ---
Author Author BONITA Rocha Organization [employer] Address Unknown Phone Unavailable Care Team Providers Care Feeder Operator Name Role Phone Brandi Rocha CP Unavailable Allergies, Adverse Reactions, Alerts Substance Reaction Event Type Iodine rash Non Drug Allergy Encounters Encounter Location Date mobic rx Maldonado Ernst MD August 16, 2013 4w f/u Maldonado Ernst MD August 12, 2013 Problems Problem Type Condition ICD-9 Code Onset Dates Condition Statu s Problem Unspecified inflammatory polyarthropathy 714.9 Active Assessment Unspecified inflammatory polyarthropathy 714.9 Active Problem Osteoarthrosis generalized, unspecified site 715.00 Active Medications Medication Code System Code Instructions Start Date End Date Status Dosage Omeprazole [facility] [address]-08 40 MG Orally Once a day Active 1 capsule Social History Social History Element Qualifiers Date Reported Tobacco Use: . Are you a:: current smok er , How often do you smoke cigarettes?: every day August 12, 2013 Caffeine: yes. frequency:, 1-3, cups/day August 12, 2013 Exercise: no. August 12, 2013 Alcohol: socially. August 12, 2013 Vital Signs Date/Time: August 12, 2013 Weight 206 lbs Height 62 in Temperature 98.3 F Cardiac Monitoring Heart Rate 76 /min Blood Pressure Diastolic 82 mm Hg Blood Pressure Systolic 124 mm Hg Summary Purpose [employer] Submission
--- NOTE | 2019-09-16 10:59 | Emergency Department Note ---
History of Present Illnes History of Present Illness Chief Complaint: COVID PUI History of Present Illness This is a 63 year old female presents to the ED for ear pain right greater than left for 2 days. Previous COVID-19 negative. Patient went to PCP's office today but was deferred to the ED department for fever. Seen at bedside NAD nontoxic appearing. . Past Medical/Family History Physician Review I have reviewed the patient's past medical and family history. Any updates have been documented here. Past Medical History Recent Fever: Yes Clinical Suspicion of Infectio: Yes New/Unexplained Change in Ment: No Other Medical History: GERD HIATAL HERNIA Past Surgical History: Hysterectomy, Knee Replacement Other Surgery: ABCESS UNDER RIGHT ARM Social History Smoking Cessation: Never Smoker Alcohol Use: None Any Illegal Drug Use: No Other Last Tetanus: UTD Review of Systems Review of Systems Constitutional: Reports fever EENTM: Reports ear pain Respiratory: Reports cough Physical Exam Related Data Allergies: Coded Allergies: iodine (Verified Allergy, Mild, RASH, 09/02/17) Cephalexin Monohydrate (Verified Allergy, Unknown, 09/02/17) Physical Exam CONSTITUTIONAL Constitutional: Reports well-developed, Reports well-nourished HENT HENT: Reports normocephalic, Reports atraumatic, Reports oropharynx clear/moist, Reports nose normal HENT L/R: Reports other (erythema TM R greater than L) EYES Eyes: Reports PERRL, Reports conjunctivae normal NECK Neck: Reports ROM normal PULMONARY Pulmonary: Reports effort normal, Reports breath sounds normal CARDIOVASCULAR Cardiovascular: Reports regular rhythm, Reports heart sounds normal, Reports capillary refill normal, Reports normal rate GASTROINTESTINAL Abdominal: Reports soft, Reports nontender, Reports bowel sounds normal GENITOURINARY Genitourinary: Reports exam deferred SKIN Skin: Reports warm, Reports dry MUSCULOSKELETAL Musculoskeletal: Reports ROM normal NEUROLOGICAL Neurological: Reports alert, Reports oriented x 3, Reports no gross motor or sensory deficits PSYCHOLOGICAL Psychological: Reports mood/affect normal, Reports judgement normal Results Laboratory Lab results reviewed: Yes Laboratory comments Rapid Flu : NEG Rapid Strep : neg COVID-19 test : PENDING Imaging Imaging results reviewed: Yes Impressions [place] [id number] Patient Name: BONITA CASTELLANO MR #: [id number] : 1955 Age/Sex: 63/F Req #: [id number] Adm Physician: Ordered by: SONA BALLESTEROS DO Report #: [id number] Location: ER Room/Bed: ____ Procedure: [id number] DX/CHEST SINGLE (PORTABLE) Exam Date: 09/16/19 Exam Time: 1145 REPORT STATUS: Signed EXAMINATION: CHEST SINGLE (PORTABLE) INDICATION: Cough COMPARISON: Chest radiograph of 07/06/2018 FINDINGS: LINES/TUBES:None LUNGS:The lungs are moderately inflated. Mild bibasilar patchy opacities. PLEURA:No pleural effusion or pneumothorax. MEDIASTINUM:The cardiomediastinal silhouette appears normal in size and shape. BONES/SOFT TISSUES:No acute osseous injury. ABDOMEN:No free air under the diaphragm. IMPRESSION: Mild bibasilar patchy opacities may represent subsegmental atelectasis or alternatively superimposed aspiration or pneumonia in the proper clinical setting. Signed by: Jairo Vuong MD on 09/16/2019 12:27 PM Dictated By: JAIRO VUONG MD [id number] Transcribed By: ANI on 09/16/19 1227 COPY TO: SONA BALLESTEROS DO~ Assessment & Plan Medical Decision Making [facility] 63 yof sent by PCP for febrile illness. Patient non-toxic appearing. Source of fever appears to be from Otitis media however COVID-19 not ruled out. Patient non-toxic appearing without labored respirations. Plan to discharge to home with COVID-19 test obtained. Rx Azithromycin Assessment & Plan Final Impression: (1) Upper respiratory infection (2) Otitis media Depart Disposition: HOME, SELF-CARE Last Vital Signs Date Time Temp Pulse Resp B/P (MAP) Pulse Ox O2 Delivery O2 Flow Rate FiO2 09/16/19 11:15 101.6 09/16/19 11:14 96 18 96 Home Meds Reported Medications Folic Acid (FOLIC ACID) 1 Mg Tablet, 1 MG PO DAILY, #30 TAB 12/12/16 Pantoprazole Sodium (Protonix) 40 Mg Tablet.dr, 40 MG PO PRN 07/25/10 Medications in the ED Acetaminophen 975 mg ONCE STAT PO Last administered on 09/16/19at 11:59; Admin Dose 975 MG; Start 09/16/19 at 11:38; Stop 09/16/19 at 11:41; Status DC SONA BALLESTEROS DO Sep 16, 2019 10:59
[2019-09-16] MEDS ORDERED: ACETAMINOPHEN 325 MG TAB PO STA (11:38)
[2019-09-16 11:48] LABS: STREPTOCOCCUS GRP A ANTIGEN NEGATIVE (NEGATIVE)
[2019-09-16 11:56] LABS: INFLUENZAE A&B ANTIGEN (RAPID) NEGATIVE (NEGATIVE)
--- NOTE | 2019-09-16 12:31 | Diagnostic Imaging Report ---
EXAMINATION: CHEST SINGLE (PORTABLE) INDICATION: Cough COMPARISON: Chest radiograph of 07/06/2018 FINDINGS: LINES/TUBES:None LUNGS:The lungs are moderately inflated. Mild bibasilar patchy opacities. PLEURA:No pleural effusion or pneumothorax. MEDIASTINUM:The cardiomediastinal silhouette appears normal in size and shape. BONES/SOFT TISSUES:No acute osseous injury. ABDOMEN:No free air under the diaphragm. IMPRESSION: Mild bibasilar patchy opacities may represent subsegmental atelectasis or alternatively superimposed aspiration or pneumonia in the proper clinical setting. Signed by: Janina Vuong MD on 09/16/2019 12:27 PM
--- NOTE | 2019-09-16 13:33 | NUR ---
Bob melednez ontained, educated patient that the results would take 2-3 days patient verbalized understanding.
== END 2019-09-16 13:34 | disposition home or self-care (01) ==
LOC: ER 10:41
DX: H66.91 Otitis media, unspecified, right ear (principal); J06.9 Acute upper respiratory infection, unspecified; U07.1 COVID-19
CPT/HCPCS: 71045; 83518; 87070; 87400; 87635; 99284

== ENCOUNTER 2021-06-07 13:09 | Emergency (ER) | payer MEDICARE, OTHER ==
[~2021-06-07] VITALS: Ht 157.5 cm; Wt 97.7 kg
[2021-06-07] MEDS ORDERED: SODIUM CHLORIDE 0.9% 1000ML 1,000 ML IV STA (13:39)
[2021-06-07] MEDS ORDERED: FAMOTIDINE 20 MG/2 ML VIAL IV ONE ×2 (13:45→14:12)
[2021-06-07] MEDS ORDERED: ONDANSETRON HCL INJ 2MG/ML 2ML 2 MG/ML VIAL IV ONE (13:45)
[2021-06-07] MEDS ORDERED: ONDANSETRON HCL INJ 2MG/ML 2ML 2 MG/ML VIAL ONE (14:12)
[2021-06-07] MEDS ORDERED: SODIUM CHLORIDE 0.9% 1000ML 1,000 ML ONE (14:12)
[2021-06-07] MEDS ORDERED: METFORMIN HCL500 M1 PO (14:19)
[2021-06-07] MEDS ORDERED: ULTRAM 50MG50 MG PO ×2 (15:04→15:42)
== END 2021-06-07 15:34 | disposition home or self-care (01) ==
LOC: FSED 13:20
DX: R10.12 Left upper quadrant pain (principal); M94.0 Chondrocostal junction syndrome [Tietze]; E11.65 Type 2 diabetes mellitus with hyperglycemia; K21.9 Gastro-esophageal reflux disease without esophagitis
CPT/HCPCS: 36415; 74176; 80053; 81003; 82553; 83690; 84484; 85025; 96374; 96375; 99284; J2405; J7030

== ENCOUNTER 2024-08-17 08:57 | Emergency (ER) | payer OTHER ==
[~2024-08-17] VITALS: Ht 157.5 cm; Wt 94.3 kg
[~2024-08-17 08:57] MED LIST changes: +ACETAMINOPHEN325 M1 PO; +LOSARTAN POTASS25 MG PO; +METFORMIN HCL500 M1 PO; +PREDNISONE20 MG PO; +ULTRAM 50MG50 MG PO
[2024-08-17 09:05] VITALS: TEMP 97.7
[2024-08-17] MEDS ORDERED: METHOCARBAMOL750 MG PO (10:15)
[2024-08-17] MEDS: DIAZEPAM 2 MG TAB PO ONE (10:23)
[2024-08-17] MEDS: KETOROLAC TROMETHAMINE 30 MG/ML VIAL IM STA (10:23)
[2024-08-17 10:27] VITALS: PULSE 87; RESP 18; O2SAT 97
== END 2024-08-17 10:30 | disposition home or self-care (01) ==
LOC: ER 09:28
DX: M62.830 Muscle spasm of back (principal); I10 Essential (primary) hypertension; E11.9 Type 2 diabetes mellitus without complications; E78.5 Hyperlipidemia, unspecified; K21.9 Gastro-esophageal reflux disease without esophagitis; G47.30 Sleep apnea, unspecified; Z96.652 Presence of left artificial knee joint
CPT/HCPCS: 99282; J1885